=== PATIENT | male | born 1975 | race Caucasian/White ===

== ENCOUNTER 2018-11-01 19:41 | Emergency (ER) | payer OTHER ==
[~2018-11-01] VITALS: Ht 180.3 cm; Wt 127.0 kg
[2018-11-01 19:47] VITALS: Ht 180.3 cm; Wt 127.0 kg
[2018-11-01 23:55] VITALS: BP 144/95
== END 2018-11-01 23:55 | disposition home or self-care (01) ==
LOC: ED 19:41
DX: N39.0 Urinary tract infection, site not specified (principal)

== ENCOUNTER → 2020-02-24 | Outpatient (CLI) | payer OTHER | END | disposition home or self-care (01) | LOC: LB 08:37 | DX: R30.0 Dysuria (principal) | CPT/HCPCS: 84153; 87491; 87591 ==